=== PATIENT | male | born 1975 | race Caucasian/White ===

== ENCOUNTER 2019-02-12 23:18 | Emergency (ER) | payer OTHER ==
[~2019-02-12] VITALS: Ht 175.3 cm; Wt 121.6 kg
[2019-02-12 23:28] VITALS: Ht 175.3 cm; Wt 121.6 kg
[2019-02-13 00:22] LABS: BASOPHIL % 0.4 % (0-2); PLATELET COUNT 168 x10^3mcL (130-400); RED CELL DISTRIBUTION WIDTH 13.4 % (11.5-14.5)
[2019-02-13 00:27] LABS: CALCIUM 8.7 mg/dL (8.5-10.1); CARBON DIOXIDE 31.9 mmol/L (21-32); CHLORIDE SERUM 103 mmol/L (98-107); CREATININE SERUM 1.2 mg/dL (0.7-1.3); GFR1 > 60 mL/min; GLUCOSE SERUM 112 mg/dL (74-106); POTASSIUM SERUM 4.2 mmol/L (3.5-5.1); SODIUM SERUM 140 mmol/L (136-145)
[2019-02-13 00:32] LABS: ALKALINE PHOSPHATASE 66 U/L (46-116); ALT/SGPT 45 U/L (16-63); AST/SGOT 23 U/L (15-37); BILIRUBIN TOTAL 0.5 mg/dL (0.20-1.00); LIPASE 91 IU/L (73-393); TOTAL PROTEIN, SERUM 7.5 g/dL (6.4-8.2)
[2019-02-13 01:03] LABS: microscopic required? NO
[2019-02-13 01:12] LABS: UA SPECIFIC GRAVITY 1.025 (1.005-1.035); urine erythrocyte NEGATIVE (NEGATIVE)
[2019-02-13 02:51] VITALS: BP 152/52
== END 2019-02-13 02:37 | disposition home or self-care (01) ==
LOC: ED 23:18
PROVIDERS: Emergency Medicine
DX: R10.13 Epigastric pain (principal); R10.814 Left lower quadrant abdominal tenderness; I10 Essential (primary) hypertension
CPT/HCPCS: J2270; J2405; J3490; J7030; Q0092